=== PATIENT | female | born 1995 | race Caucasian/White ===

== ENCOUNTER 2025-06-12 10:08 | Outpatient (CLI) | payer BC | END 2025-06-12 10:09 | disposition home or self-care (01) | LOC: CSHULT 10:08 | PROVIDERS: ATTEND Pediatrics Pediatric Endocrinology | DX: Z36.3 Encounter for antenatal screening for malformations (principal); O32.1XX0 Maternal care for breech presentation, not applicable or unspecified; Z3A.23 23 weeks gestation of pregnancy | CPT/HCPCS: 76805 ==